=== PATIENT | male | born 1960 | race Caucasian/White ===

== ENCOUNTER → 2019-12-31 14:35 | Outpatient (CLI) | payer SELFPAY ==
--- NOTE | 2019-12-31 14:36 | DI.RAD.S_ITS ---
PROCEDURE: XR LUMBAR SPINE 2-3V INDICATIONS: low back pain TECHNIQUE: 3 views of the lumbar spine were acquired. COMPARISON: None. FINDINGS: Bones: 5 [id number] vertebrae are present. There is normal bony alignment. Degenerative endplate changes and bilateral facet arthrosis throughout lumbar spine is seen more prominent at L3-4 and L4-5 levels. No vertebral body compression fractures. No suspicious bony lesions. Soft tissues: Overlying bowel gas pattern is normal. No suspicious soft tissue calcifications. IMPRESSION: Degenerative disc disease throughout lumbar spine. No acute compression fracture or spondylolisthesis. Dictated by: Sarabjit Morel M.D. on 12/31/2019 at 15:51 Approved by: Sarabjit Morel M.D. on 12/31/2019 at 15:51
== END ==
LOC: RAD 14:36
PROVIDERS: Referring Provider Physician Assistant; Visit Provider Physician Assistant
DX: M54.5 Low back pain (principal); M51.36 Other intervertebral disc degeneration, lumbar region
CPT/HCPCS: 72100